=== PATIENT | female | born 1965 | race Caucasian/White ===

== ENCOUNTER 2018-01-18 11:25 | Day surgery (SDC) | payer OTHER ==
[2018-01-19] MEDS ORDERED: PROPOFOL 40 ML (17:29)
== END 2018-01-18 16:42 | disposition home or self-care (01) ==
LOC: GIL 11:25
DX: Z12.11 Encounter for screening for malignant neoplasm of colon (principal); B96.81 Helicobacter pylori [H. pylori] as the cause of diseases classified elsewhere; K44.9 Diaphragmatic hernia without obstruction or gangrene; K21.9 Gastro-esophageal reflux disease without esophagitis; K29.60 Other gastritis without bleeding; K64.8 Other hemorrhoids
CPT/HCPCS: 43239; 87081

== ENCOUNTER 2019-01-25 17:47 | Emergency (ER) | payer MEDICAID, OTHER | END 2019-01-25 20:21 | disposition home or self-care (01) | LOC: FTE 17:47 | DX: J06.9 Acute upper respiratory infection, unspecified (principal); I10 Essential (primary) hypertension; Z79.82 Long term (current) use of aspirin | CPT/HCPCS: 99283; Z7502 ==

== ENCOUNTER 2019-03-12 07:18 | Emergency (ER) | payer OTHER | END 2019-03-12 08:54 | disposition home or self-care (01) | LOC: FTE 07:18 | DX: H65.91 Unspecified nonsuppurative otitis media, right ear (principal); I10 Essential (primary) hypertension; Z79.82 Long term (current) use of aspirin | CPT/HCPCS: 99283; Z7502 ==

== ENCOUNTER 2019-03-15 19:47 | Emergency (ER) | payer OTHER | END 2019-03-15 20:41 | disposition home or self-care (01) | LOC: E/R 19:47 | DX: H60.91 Unspecified otitis externa, right ear (principal); I10 Essential (primary) hypertension; Z79.82 Long term (current) use of aspirin | CPT/HCPCS: 99283; Z7502 ==